=== PATIENT | female | born 1980 | race Caucasian/White ===

== ENCOUNTER 2016-05-05 16:52 | Emergency (ER) | payer SELFPAY ==
[2016-05-05 18:48] VITALS: BP 130/78
[2016-05-05] MEDS ORDERED: Ibuprofen TAB* 600 MG PO ONE (19:30)
--- NOTE | 2016-05-05 19:30 | UC ---
Laceration HPI - HPI Summary HPI Summary: 35 yo female cut right middle finger with a franny knife she is right handed knife was clean suspects last Td was about 5 years ago unable to fully extend finger - History Of Current Complaint Chief Complaint: UCLaceration Stated Complaint: FINGER LACERATION Time Seen by Provider: 05/05/16 18:56 Hx Obtained From: Patient Laceration Location: Finger - RMF Mechanism Of Injury: Sharp Trauma Onset/Duration: Sudden Onset Severity: Moderate Pain Intensity: 5 Pain Scale Used: 0-10 Numeric Related History: Dominant Hand Right - Allergies/Home Medications Allergies/Adverse Reactions: Allergies Allergy/AdvReac Type Severity Reaction Status Date / Time Doxycycline Allergy Intermediate Hives Verified 02/26/13 08:32 Tricycline Allergy Intermediate Hives Uncoded 02/26/13 08:33 Home Medications: Home Medications Cetirizine HCl [Zyrtec Allergy] 05/05/16 [History] Esomeprazole Magnesium [Nexium 24Hr] 20 mg PO 05/05/16 [History] PMH/Surg Hx/FS Hx/Imm Hx Previously Healthy: Yes Endocrine History Of: Denies: Diabetes, Thyroid Disease Cardiovascular History Of: Denies: Cardiac Disorders, Hypertension Respiratory History Of: Denies: COPD, Asthma GI/ History Of: Denies: Ulcer - Surgical History Surgical History: Yes Surgery Procedure, Year, and Place: [place] tooth extraction - Family History Known Family History: Positive: Hypertension, Diabetes, Other - CVA - Social History Alcohol Use: Occasionally Substance Use Type: None Smoking Status (MU): Former Smoker Have You Smoked in the Last Year: Yes - Immunization History Most Recent Tetanus Shot: unknown Review of Systems Constitutional: Negative Skin: Negative Eyes: Negative ENT: Negative Respiratory: Negative Cardiovascular: Negative Gastrointestinal: Negative Genitourinary: Negative Motor: Negative Neurovascular: Negative Musculoskeletal: Negative Neurological: Negative Psychological: Negative All Other Systems Reviewed And Are Negative: Yes Physical Exam Triage Information Reviewed: Yes Appearance: Well-Appearing, No Pain Distress, Well-Nourished Vital Signs: Initial Vital Signs Temp 98.9 F 05/05/16 18:32 Pulse 90 05/05/16 18:32 Resp 18 05/05/16 18:32 BP 130/78 05/05/16 18:32 Pulse Ox 97 05/05/16 18:32 Vital Signs Reviewed: Yes Eyes: Positive: Conjunctiva Clear ENT: Positive: Hearing grossly normal. Negative: Nasal congestion, Nasal drainage, Trismus, Muffled/hoarse voice Neck exam: Normal Respiratory: Positive: Lungs clear, Normal breath sounds, No respiratory distress Cardiovascular: Positive: RRR, No Murmur, Pulses Normal Musculoskeletal: Positive: No Edema, ROM Limited @ - RMF Neurological: Positive: Alert Psychological Exam: Normal Skin Exam: Normal Laceration Repair - Laceration Repair 1 Description: Joint Proximity Laceration Size After Repair: Length (cm) - 1.2, Width (mm) - 1, Depth (mm) - 3 Type Injection: Digital Anesthesia Used: 2.0% Lido, 0.25% Marcaine Additive Used (in ml): Bicarb Cleansing Completed Via Routine Prep: Yes Irrigation With Pressure Irrigation Device: Yes Closure Material: Sutures Closure Method: Single Layer Suture Of: Skin Suture Type: Nylon - 4 5-0 nylon Laceration Course/Dx - Differential Dx - Laceration/Wound Provider Diagnoses: laceration of right middle finger/extensor tendon at level of DIP. mallet finger deformity - Physician Notification/Consults Discussed Patient Care With: Dr. Tinsley. Suggests f/u Sunday with one of the hand specialists in his group Discharge - Discharge Plan Condition: Stable Disposition: HOME Prescriptions: Ibuprofen TAB* [Motrin TAB*] 600 mg PO Q6H PRN #40 tab PRN Reason: Pain Patient Education Materials: Finger Laceration (ED), Tendon Laceration (ED) Forms: *Work Release Referrals: No Primary Care Phys,NOPCP [Primary Care Provider] - Additional Instructions: you lacerated the extensor tendon of your right middle finger I spoke to Dr. Tinsley Call his office Sunday and make an appt to see Dr. Crum or [place] If it looks infected over the weekend go to the ER elevate elevate elevate splint don't attempt to bend the lacerated joint Images Hands: 1 - lac/mallet finger deformity
[2016-05-05] MEDS ORDERED: Bupivacaine 0.25% SDV* 30 ML ONE (19:34)
[2016-05-05] MEDS ORDERED: Sodium Bicarbonate 8.4% IV* 50 ML VIAL ONE (19:34)
[2016-05-05] MEDS ORDERED: Lidocaine 2% PF * 5 ML VIAL ONE (19:35)
--- NOTE | 2016-05-05 20:49 | RAD ---
INDICATION: Right third digit injury COMPARISON: None TECHNIQUE: AP, lateral, and oblique views were obtained. FINDINGS: The bony structures, joint spaces, and soft tissues are normal for age. IMPRESSION: NO ACUTE FRACTURE OR FOREIGN BODY.
== END 2016-05-05 21:00 | disposition home or self-care (01) ==
LOC: UCEAST 16:52
DX: S61.212A Laceration without foreign body of right middle finger without damage to nail, initial encounter (principal); S66.322A Laceration of extensor muscle, fascia and tendon of right middle finger at wrist and hand level, initial encounter; W26.0XXA Contact with knife, initial encounter; Y93.9 Activity, unspecified; Y92.9 Unspecified place or not applicable; M20.011 Mallet finger of right finger(s); Z88.8 Allergy status to other drugs, medicaments and biological substances; Z87.891 Personal history of nicotine dependence
CPT/HCPCS: 12001; 73140; 99202; A9270-GY; G0463

== ENCOUNTER 2017-01-23 12:46 | Emergency (ER) | payer OTHER ==
[2017-01-23 12:54] VITALS: BP 115/60
--- NOTE | 2017-01-23 13:51 | UC ---
Ear Complaint HPI - HPI Summary HPI Summary: FOUR DAYS OF LEFT EAR PAIN. CHRONIC HISTORY OF HEARING LOSS IN LEFT EAR. WILL SOON BE FITTED FOR HEARING AIDS. NO FEVER. INTERMITTENT SORE THROAT. NO SINUS PRESSURE OR PAIN. NO COUGH. NO KNOWN TRAUMA. - History of Current Complaint Chief Complaint: UCEar Stated Complaint: EAR PAIN Time Seen by Provider: 01/23/17 13:17 Hx Obtained From: Patient Hx Last Menstrual Period: 01/15/17 Onset/Duration: Gradual Onset, Lasting Days, Still Present Severity Initially: Mild Severity Currently: Moderate Pain Intensity: 0 Pain Scale Used: 0-10 Numeric Associated Signs/Symptoms: Positive: Hearing Loss, URI Symptoms - SORE THROAT - Allergies/Home Medications Allergies/Adverse Reactions: Allergies Allergy/AdvReac Type Severity Reaction Status Date / Time Doxycycline Allergy Intermediate Hives Verified 01/23/17 12:54 Tricycline Allergy Intermediate Hives Uncoded 01/23/17 12:54 PMH/Surg Hx/FS Hx/Imm Hx Previously Healthy: Yes - Surgical History Surgical History: Yes Surgery Procedure, Year, and Place: [place] tooth extraction - Family History Known Family History: Positive: Hypertension, Diabetes, Other - CVA - Social History Occupation: Employed Full-time Lives: With Family Alcohol Use: Occasionally Substance Use Type: None Smoking Status (MU): Former Smoker Have You Smoked in the Last Year: Yes - Immunization History Most Recent Influenza Vaccination: none Most Recent Tetanus Shot: unknown Review of Systems Constitutional: Negative Skin: Negative Eyes: Negative ENT: Sore Throat, Ear Ache Respiratory: Negative Cardiovascular: Negative Gastrointestinal: Negative Genitourinary: Negative Motor: Negative Neurovascular: Negative Musculoskeletal: Negative Neurological: Negative Psychological: Negative Is Patient Immunocompromised?: No All Other Systems Reviewed And Are Negative: Yes Physical Exam Triage Information Reviewed: Yes Appearance: No Pain Distress, Well-Nourished, Ill-Appearing Vital Signs: Initial Vital Signs Temp 98.0 F 01/23/17 12:50 Pulse 85 01/23/17 12:50 Resp 16 01/23/17 12:50 BP 115/60 01/23/17 12:50 Pulse Ox 99 01/23/17 12:50 Vital Signs Reviewed: Yes Eye Exam: Normal ENT: Positive: TM dull, TM red, Tonsillar swelling, Other: - LEFT EAC EDEMA ERRYTHEMA Dental Exam: Normal Neck exam: Normal Neck: Positive: Supple, Nontender, No Lymphadenopathy Respiratory Exam: Normal Respiratory: Positive: Chest non-tender, Lungs clear, Normal breath sounds, No respiratory distress, No accessory muscle use Cardiovascular Exam: Normal Cardiovascular: Positive: RRR, No Murmur, Pulses Normal Abdominal Exam: Normal Musculoskeletal Exam: Normal Neurological Exam: Normal Psychological Exam: Normal Skin Exam: Normal Ear Complaint Course/Dx - Differential Dx/Diagnosis Differential Diagnosis/HQI/PQRI: Otitis Externa, Otitis Media, URI Provider Diagnoses: LEFT OTITIS MEDIA/OTITIS EXTERNA Discharge - Discharge Plan Condition: Stable Disposition: HOME Prescriptions: Amoxicillin/Clavulanate TAB* [Augmentin TAB 875*] 875 mg PO BID #20 tab Neomyc/Polym/HC 1% OTIC SUSP* [Cortisporin Otic Susp 1%*] 4 drop LEFT EAR TID # 1 btl Patient Education Materials: Otitis Externa (ED), Serous Otitis Media (ED) Referrals: Corby Bagley MD [Primary Care Provider] -
== END 2017-01-23 13:31 | disposition home or self-care (01) ==
LOC: UCEAST 12:46
DX: H66.92 Otitis media, unspecified, left ear (principal); Z87.891 Personal history of nicotine dependence; H60.92 Unspecified otitis externa, left ear
CPT/HCPCS: 99212; G0463

== ENCOUNTER 2019-03-03 08:16 | Emergency (ER) | payer OTHER ==
[2019-03-03 08:33] VITALS: BP 143/80
[2019-03-03] MEDS ORDERED: Ondansetron ODT TAB* 4 MG PO ONE (08:54)
--- NOTE | 2019-03-03 09:02 | UC ---
Nausea/Vomiting/Diarrhea HPI - HPI Summary HPI Summary: Ms. Curry was fine yesterday but then last evening began to be nauseated and vomiting. She has been unable to even keep water down all night long. She denies any abdominal pain or diarrhea. She does complain of a headache that is not unusual for her. - History of Current Complaint Chief Complaint: UCGI Stated Complaint: VOMITING HEADACHE Time Seen by Provider: 03/03/19 08:48 Hx Obtained From: Patient Hx Last Menstrual Period: 02/19/19 Onset/Duration: Sudden Onset, Lasting Hours Timing: Constant Severity Initially: Moderate Severity Currently: Moderate Pain Intensity: 7 - is not pain but nausea and discomfort Aggravating Factor(s): Food Alleviating Factor(s): Nothing Nausea/Vomiting Presence: Nauseated, Vomiting Vomiting Frequency: Every 15-60 minutes Vomiting Characteristics: Other - She was retching so she has been drinking water so that she has something to vomit - Allergies/Home Medications Allergies/Adverse Reactions: Allergies Allergy/AdvReac Type Severity Reaction Status Date / Time doxycycline Allergy Hives Verified 03/03/19 08:29 Tricycline Allergy Intermediate Hives Uncoded 03/03/19 08:29 PMH/Surg Hx/FS Hx/Imm Hx Previously Healthy: Yes - Surgical History Surgical History: Yes Surgery Procedure, Year, and Place: [place] tooth extraction - Family History Known Family History: Positive: Hypertension, Diabetes, Other - CVA - Social History Alcohol Use: Occasionally Substance Use Type: Marijuana Smoking Status (MU): Former Smoker Have You Smoked in the Last Year: Yes - Immunization History Most Recent Influenza Vaccination: none Most Recent Tetanus Shot: unknown Review of Systems All Other Systems Reviewed And Are Negative: Yes Physical Exam - Summary Physical Exam Summary: She is nontoxic in appearance and mildly tachycardic. Triage Information Reviewed: Yes Appearance: No Pain Distress Vital Signs: Initial Vital Signs Temp 98 F 03/03/19 08:24 Pulse 110 03/03/19 08:24 Resp 18 03/03/19 08:24 BP 143/80 03/03/19 08:24 Pulse Ox 98 03/03/19 08:24 Vital Signs Reviewed: Yes Neck: Positive: Supple Respiratory Exam: Normal Cardiovascular Exam: Normal Abdominal Exam: Normal Bowel Sounds: Positive: Present Neurological Exam: Normal Naus/Vom/Diarrhea Course/Dx - Course Course Of Treatment: She improved here with Zofran and requested that she be allowed to go home and get some sleep. She also wanted to have some soup and I recommended taking foods slowly and encourage liquids. - Differential Dx/Diagnosis Provider Diagnosis: Nausea & vomiting Discharge ED - Sign-Out/Discharge Documenting (check all that apply): Patient Departure All imaging exams completed and their final reports reviewed: No Studies - Discharge Plan Condition: Stable Disposition: HOME Referrals: No Primary Care Phys,NOPCP [Primary Care Provider] - - Billing Disposition and Condition Condition: STABLE Disposition: Home
== END 2019-03-03 10:10 | disposition home or self-care (01) ==
LOC: UCEAST 08:16
DX: R11.2 Nausea with vomiting, unspecified (principal); R00.0 Tachycardia, unspecified; Z87.891 Personal history of nicotine dependence; Z88.1 Allergy status to other antibiotic agents
CPT/HCPCS: 99212; A9270-GY; G0463

== ENCOUNTER 2019-06-02 09:18 | Emergency (ER) | payer OTHER ==
[2019-06-02 09:43] VITALS: BP 141/103
[2019-06-02 10:47] LABS: Influenza A Molecular Negative (Negative); Influenza B Molecular Negative (Negative)
[2019-06-02] MEDS ORDERED: Ondansetron ODT TAB* 4 MG PO ONE (11:27)
--- NOTE | 2019-06-02 11:31 | UC ---
FLU HPI - HPI Summary HPI Summary: 38-year-old woman comes in with a chief complaint of nausea vomiting diarrhea influenza-like symptoms right ear pain. 5 days ago patient started with some diarrhea. 2 days ago she started with headaches that is associated with photophobia nausea and vomiting. Headache is primarily on the top of her head. She has no headache at this time. Headache at its worse was moderate to severe. Headache gets better when she lays down. Yesterday her abdomen hurts diffusely. Today she has no abdominal pain. When she vomited this morning she had sudden onset of right ear pain and feels like there is swelling in the right upper neck. Patient has a history of poor hearing and has seen Dr. Lozano in [place] as her ENT. Patient does have a sore throat. Since the vomiting episode this morning patient does not feel like it's any more difficult to swallow and she has been able to drink liquids and soup. Diarrheas been occurring about twice a day. - History of Current Complaint Chief Complaint: UCGeneralIllness Stated Complaint: VOMITTING EAR PAIN Time Seen by Provider: 06/02/19 10:55 Hx Last Menstrual Period: 05/18/19 Pain Intensity: 4 - Allergy/Home Medications Allergies/Adverse Reactions: Allergies Allergy/AdvReac Type Severity Reaction Status Date / Time doxycycline Allergy Hives Verified 06/02/19 09:43 Tricycline Allergy Intermediate Hives Uncoded 06/02/19 09:43 Home Medications: Home Medications Aspirin Bc 1 tab PO DAILY PRN 02/26/13 [History Confirmed 06/02/19] Cetirizine HCl [Zyrtec Allergy] 10 mg PO DAILY PRN 05/05/16 [History Confirmed 06/02/19] Ondansetron ODT TAB* [Zofran 4 MG Odt TAB*] 4 mg PO Q6H PRN #10 tab.odt [Rx] PMH/Surg Hx/FS Hx/Imm Hx Previously Healthy: Yes - Surgical History Surgical History: Yes Surgery Procedure, Year, and Place: [place] tooth extraction x3 - Family History Known Family History: Positive: Hypertension, Diabetes, Other - CVA - Social History Alcohol Use: Occasionally Substance Use Type: Marijuana Smoking Status (MU): Former Smoker Have You Smoked in the Last Year: Yes - Immunization History Most Recent Influenza Vaccination: none Most Recent Tetanus Shot: unknown Review of Systems All Other Systems Reviewed And Are Negative: Yes Constitutional: Positive: Other - SEE HPI Skin: Positive: Negative Eyes: Positive: Negative ENT: Positive: Sore Throat, Nasal Discharge, Sinus Congestion Respiratory: Positive: Negative Cardiovascular: Positive: Negative Gastrointestinal: Positive: Abdominal Pain, Vomiting, Diarrhea, Nausea Motor: Positive: Negative Neurovascular: Positive: Negative Musculoskeletal: Positive: Negative Neurological/Mental Status: Positive: Headache Psychological: Positive: Negative Is Patient Immunocompromised?: No Physical Exam Triage Information Reviewed: Yes Appearance: No Pain Distress, Well-Nourished, Ill-Appearing - MILD Vital Signs: Initial Vital Signs Temp 98.5 F 06/02/19 09:40 Pulse 93 06/02/19 09:40 Resp 20 06/02/19 09:40 BP 141/103 06/02/19 09:40 Pulse Ox 99 06/02/19 09:40 Vital Signs Reviewed: Yes Eye Exam: Normal Eyes: Positive: Conjunctiva Clear ENT: Positive: Pharyngeal erythema, Nasal congestion, Nasal drainage, TMs normal , Other - Soft tissue of the upper neck feels symmetric on my examination I do not feel any crepitus. Neck: Positive: Supple Respiratory: Positive: Lungs clear, Normal breath sounds, No respiratory distress Cardiovascular: Positive: RRR Abdomen Description: Positive: Nontender, Soft Bowel Sounds: Positive: Present Musculoskeletal: Positive: Strength Intact, ROM Intact Neurological: Positive: Alert, Muscle Tone Normal Psychological: Positive: Normal Response To Family, Age Appropriate Behavior Skin Exam: Normal Flu Course/Dx - Course Course Of Treatment: Rapid influenza was negative. Patient denies any concern of strep throat. I did not appreciate any ruptured eardrum or crepitus in the soft tissue on the right side of her neck where the patient has the pain after the vomiting episode. Patient seen Dr. Lozano in the past and she'll follow-up with him or ENT here in [place] if the ear is not completely improved. At this time we'll treat the symptoms with Zofran for the nausea. We discussed getting a stool sample which the patient declined at this time. Let the patient know that if the diarrhea continued she needs to get that evaluated. No abdominal pain here in clinic today. No headache during examination. Will continue to treat symptomatically and get reevaluated if worse or not improving. - Differential Dx/Diagnosis Provider Diagnosis: Influenza-like illness, Vomiting and diarrhea, Right ear pain Discharge ED - Sign-Out/Discharge Documenting (check all that apply): Patient Departure All imaging exams completed and their final reports reviewed: No Studies - Discharge Plan Condition: Stable Disposition: HOME Prescriptions: Ondansetron ODT TAB* [Zofran 4 MG Odt TAB*] 4 mg PO Q6H PRN #10 tab.odt PRN Reason: Nausea/Vomiting Patient Education Materials: Acute Nausea and Vomiting (ED), Acute Diarrhea (ED ), Earache (ED) Forms: *Work Release Referrals: [facility] [Outside] Tashi Lozano MD [Medical Doctor] - Francisco Prater MD [Medical Doctor] - Bertin Gonsalez MD [Medical Doctor] - Additional Instructions: FOLLOW UP WITH YOUR PRIMARY CARE DOCTOR IF NOT COMPLETELY IMPROVED. FOLLOW UP WITH ENT IF YOUR EAR IS NOT COMPLETELY IMPROVED. GET REEVALUATED SOONER IF NOT IMPROVED OR WORSE; PAIN, FEVER, YOU FEEL ILL, DEHYDRATION OR ANY QUESTIONS OR CONCERNS. - Billing Disposition and Condition Condition: STABLE Disposition: Home
== END 2019-06-02 11:39 | disposition home or self-care (01) ==
LOC: UCEAST 09:18
DX: H92.01 Otalgia, right ear (principal); R11.2 Nausea with vomiting, unspecified; R19.7 Diarrhea, unspecified; R51 Headache; H53.149 Visual discomfort, unspecified; R10.84 Generalized abdominal pain; Z88.1 Allergy status to other antibiotic agents; Z87.891 Personal history of nicotine dependence
CPT/HCPCS: 99212; A9270-GY; G0463